=== PATIENT | male | born 1950 | race Caucasian/White ===

== ENCOUNTER 2018-10-23 21:11 | Emergency (ER) | payer OTHER, MEDICARE ==
[~2018-10-23] VITALS: Ht 182.9 cm; Wt 94.8 kg
[2018-10-23] MEDS ORDERED: PRAV20 PO (21:49)
[2018-10-23] MEDS ORDERED: POTA10T PO (21:49)
[2018-10-23] MEDS ORDERED: MAGCHL64ER PO (21:49)
[2018-10-23] MEDS ORDERED: ERGO400 PO (21:49)
[2018-10-23] MEDS ORDERED: [UNRECOGNIZED DRUG - REMARK] PO (21:53)
[2018-10-23 21:54] LABS: BASOPHILS ABSOLUTE AUTO 0.05 K/mm3 (0.00-0.23); BASOPHILS PERCENT AUTO 0 % (0-2); EOSINOPHILS ABSOLUTE AUTO 0.26 K/mm3 (0.00-0.68); EOSINOPHILS PERCENT AUTO 2 % (0-6); Hemoglobin 12.4 g/dL (13.5-17.5); IMMATURE GRAN ABSOLUTE AUTO 0.04 K/mm3 (0.00-0.10); IMMATURE GRAN PERCENT AUTO 0 % (0-1); LYMPHOCYTES ABSOLUTE AUTO 1.52 K/mm3 (0.84-5.20); LYMPHOCYTES PERCENT AUTO 12 % (21-46); MONOCYTES ABSOLUTE AUTO 1.64 K/mm3 (0.16-1.47); MONOCYTES PERCENT AUTO 13 % (4-13); Mean Corpuscular HGB 28.3 pg (26.0-34.0); Mean Corpuscular HGB Conc 31.8 g/dL (31.5-36.5); Mean Corpuscular Volume 89 fL (80-100); Mean Platelet Volume 9.7 fL (9.1-12.4); NEUTROPHILS ABSOLUTE AUTO 9.37 K/mm3 (1.96-9.15); NEUTROPHILS PERCENT AUTO 73 % (41-73); Platelet Count 174 K/mm3 (150-400); RDW Coefficient Variation 13.6 % (11.7-14.2); RDW Standard Deviation 44.3 fL (35.1-46.3); Red Blood Cell Count 4.38 M/mm3 (4.30-5.90); White Blood Cell Count 12.88 K/mm3 (4.00-11.30)
[2018-10-23 22:15] LABS: Alanine Aminotransfer (ALT/SGP 24 U/L (12-78); Albumin, Blood 3.5 g/dL (3.4-5.0); Alk Phos 87 U/L (50-136); Anion Gap 8 mmol/L (6-16); Aspartate Aminotrans (AST/SGOT 17 U/L (12-37); Bilirubin, Total 0.5 mg/dL (0.1-1.0); Blood Urea Nitrogen 13 mg/dL (8-24); Bun/Creatinine Ratio 13.5 (12.0-20.0); CO2, Blood 27 mmol/L (21-32); Calcium, Blood 8.3 mg/dL (8.5-10.1); Chloride, Blood 108 mmol/L (98-108); Creatinine, Blood 0.97 mg/dL (0.60-1.20); Globulin, Blood 3.6 g/dL (2.2-4.0); Glomerular Filtration Rate >60 (60-); Glucose, Blood 85 mg/dL (70-99); Potassium, Blood 4.3 mmol/L (3.5-5.5); Sodium, Blood 143 mmol/L (136-145); Total Protein, Blood 7.1 g/dL (6.4-8.2); Troponin I <0.015 ng/mL (0.000-0.040)
[2018-10-23 22:52] LABS: International Normalized Ratio 3.43; Prothrombin Time Results 32.5 Sec (9.7-11.5)
[2018-10-24] MEDS ORDERED: Norvasc5 MG PO (00:10)
== END 2018-10-24 01:03 | disposition home or self-care (01) ==
LOC: ER 21:11
PROVIDERS: Emergency Medicine
DX: I10 Essential (primary) hypertension (principal); Z91.030 Bee allergy status; Z79.899 Other long term (current) drug therapy; J44.9 Chronic obstructive pulmonary disease, unspecified; F03.90 Unspecified dementia, unspecified severity, without behavioral disturbance, psychotic disturbance, mood disturbance, and anxiety; Z87.891 Personal history of nicotine dependence
CPT/HCPCS: 70450; 80053; 84484; 85025; 85610; 99284-25

== ENCOUNTER 2019-05-13 10:03 | Emergency (ER) | payer OTHER, MEDICARE ==
[~2019-05-13] VITALS: Ht 182.9 cm; Wt 96.2 kg
[~2019-05-13 10:03] MED LIST: ERGO400 PO; MAGCHL64ER PO; Norvasc5 MG PO; POTA10T PO; PRAV20 PO; [UNRECOGNIZED DRUG - REMARK] PO
[2019-05-13] MEDS ORDERED: MAGNESIUM OXID400 M1 (11:30)
[2019-05-13] MEDS ORDERED: Lopressor 25 mg25 MG PO (11:57)
[2019-05-13] MEDS ORDERED: Coumadin5 MG PO (11:57)
[2019-05-13] MEDS ORDERED: Lasix40 MG PO (11:57)
[2019-05-13] MEDS ORDERED: Potassium Chlo10 ME1 PO (11:57)
== END 2019-05-13 12:19 | disposition home or self-care (01) ==
LOC: ER 10:03
DX: F03.90 Unspecified dementia, unspecified severity, without behavioral disturbance, psychotic disturbance, mood disturbance, and anxiety (principal); Z76.0 Encounter for issue of repeat prescription; I10 Essential (primary) hypertension; J44.9 Chronic obstructive pulmonary disease, unspecified; Z87.891 Personal history of nicotine dependence
CPT/HCPCS: 99282